=== PATIENT | male | born 1945 | race Caucasian/White ===

== ENCOUNTER 2016-09-28 04:04 | Emergency (ER) | payer MEDICARE, BC ==
[2016-09-28 04:20] LABS: #Basophils 0.1 thou/uL (0.0-0.2); #Eosinphils 0.2 thou/uL (0.0-0.7); #Lymphocytes 4.8 thou/uL (1.20-3.40); #Monocytes 0.8 thou/uL (0.11-0.59); #Neutrophils 3.7 thou/uL (1.40-6.50); %Basophils 1.4 % (0.0-1.0); %Eosinophils 1.8 % (0.0-10.0); %Lymphocytes 49.8 % (21.0-51.0); %Monocytes 8.7 % (0.0-10.0); %Neutrophils 38.3 % (42.0-75.0); Mean Corpuscular HGB CONC 34.4 g/dL (32.0-36.0); Mean Corpuscular Volume 87.1 fl (80.0-94.0); Mean Platelet Volume 10.2 fL (7.4-10.4); Platelet Count 164 thou/uL (130-400); RBC Distribution Width 11.8 % (11.5-14.5); Red Blood Cell (RBC) Count 5.35 mill/uL (4.70-6.10); White Blood Cell (WBC) Count 9.6 thou/uL (4.8-10.8)
[2016-09-28 04:30] LABS: INR-International Normal Ratio 1.1; PTT 24.9 SEC (22.9-36.1); Prothrombin Time 14.6 SEC (12.0-14.7)
[2016-09-28 04:36] LABS: ALT (SGPT) 37 U/L (8-55); AST (SGOT) 18 U/L (5-34); Alkaline Phosphatase 74 U/L (40-150); Anion Gap 16 mmol/L (10-20); BUN (Urea Nitrogen) 15 mg/dL (8.4-25.7); Bilirubin, Total 0.4 mg/dL (0.2-1.2); Calc. Creatinine Clearance 0 mL/min (70-130); Calcium 8.8 mg/dL (7.8-10.44); Carbon Dioxide 22 mmol/L (23-31); Chloride 106 mmol/L (98-107); Estimated GFR-MDRD 61; Glucose 244 mg/dL (80-115); Potassium 3.8 mmol/L (3.5-5.1); Sodium 140 mmol/L (136-145)
[2016-09-28 04:38] LABS: CKMB 2.8 ng/mL (0-6.6); Troponin I Less than 0.010 ng/mL (< 0.028)
[2016-09-28 04:45] LABS: Bilirubin Negative (Negative); Blood, Urine Negative (Negative); Clarity Clear (Clear); Glucose, Urine (Dipstick) 250 mg/dL (Negative); Leukocyte Negative (Negative); Nitrite Negative (Negative); Protein, Urine (Dipstick) Negative (Neg-Trace); Urobilinogen 0.2 mg/dL (0.2-1.0)
--- NOTE | 2016-09-28 10:08 | CT ---
PRELIMINARY REPORT/[facility]/EMERGENCY AFTER HOURS PROCEDURE: EXAM: CT Head Without Intravenous Contrast CLINICAL HISTORY: 71 years old, male; Signs and symptoms; Cerebral degeneration; Patient HX: Left sided numbess, with difficulty swollowing TECHNIQUE: Axial computed tomography images of the head/brain without intravenous contrast. EXAM DATE/TIME: 09/28/2016 4:16 AM COMPARISON: No relevant prior studies available. FINDINGS: Brain: -No bleed, mass, or shift of structures. Mild atrophy. Areas of low attenuation in the perive ntricular white matter believed to be the manifestatiion of small vessel ischemic disease. Ventricles: Unremarkable. No ventriculomegaly. Bones/joints: Unremarkable. No acute fracture. Soft tissues: Unremarkable. Sinuses: Unremarkable as visualized. No acute sinusitis. Mastoid air cells: Unremarkable as visualized. No mastoid effusion. IMPRESSION: No acute intracranial process is appreciated. No CT evidence of mass hemorrhage or acute infarction. Thank you for allowing us to participate in the care of your patient. Dictated and Authenticated by: Antione Leija MD 09/28/2016 4:23 AM Central Time ([place] \T\ [place]) FINAL REPORT EMERGENCY AFTER HOURS CT HEAD NONCONTRAST: Date: 09/28/16 Time: 0417 hours HISTORY: Left-sided face and arm numbness. TIA. FINDINGS: No comparison. Findings agree with the preliminary report by [facility]. No acute intracranial abnormalities are demonstrated on noncontrast CT head. POS: [facility]
== END 2016-09-28 05:47 | disposition short-term general hospital (02) ==
LOC: BURERS 04:04
DX: G45.9 Transient cerebral ischemic attack, unspecified (principal); K21.9 Gastro-esophageal reflux disease without esophagitis; Z79.899 Other long term (current) drug therapy
CPT/HCPCS: 36416; 70450; 80053; 81003; 82553; 84443; 84484; 85025; 85610; 85730; A4216